=== PATIENT | male | born 1995 | race Two or more races ===

== ENCOUNTER 2019-03-05 13:43 | Emergency (ER) | payer SELFPAY ==
[~2019-03-05] VITALS: Ht 182.9 cm; Wt 136.1 kg
[2019-03-05 13:48] VITALS: Ht 182.9 cm; Wt 136.1 kg
[2019-03-05 15:08] LABS: BASOPHIL % 0.3 % (0-2); PLATELET COUNT 302 x10^3mcL (130-400); RED CELL DISTRIBUTION WIDTH 13.5 % (11.5-14.5)
[2019-03-05 15:12] LABS: CALCIUM 8.9 mg/dL (8.5-10.1); CARBON DIOXIDE 24.2 mmol/L (21-32); CHLORIDE SERUM 106 mmol/L (98-107); GFR1 > 60 mL/min; GLUCOSE SERUM 125 mg/dL (74-106); POTASSIUM SERUM 3.3 mmol/L (3.5-5.1); SODIUM SERUM 142 mmol/L (136-145)
[2019-03-05 15:24] LABS: ALBUMIN 3.9 g/dL (3.4-5.0); ALKALINE PHOSPHATASE 65 U/L (46-116); ALT/SGPT 22 U/L (16-63); AST/SGOT 15 U/L (15-37); BILIRUBIN TOTAL 0.37 mg/dL (0.20-1.00)
[2019-03-05 18:22] VITALS: BP 138/79
[2019-03-05 19:06] LABS: AMPHETAMINE QUAL UR NONE DETECTED (See below)
== END 2019-03-05 18:22 | disposition home or self-care (01) ==
LOC: ED 13:43
PROVIDERS: Emergency Medicine
DX: T40.1X1A Poisoning by heroin, accidental (unintentional), initial encounter (principal); R11.10 Vomiting, unspecified; F17.210 Nicotine dependence, cigarettes, uncomplicated; J45.909 Unspecified asthma, uncomplicated; Y92.89 Other specified places as the place of occurrence of the external cause
CPT/HCPCS: 83880; J2310; J2405; J7040; Q0092